=== PATIENT | female | born 1975 | race Caucasian/White ===

== ENCOUNTER → 2018-07-03 | Outpatient (CLI) | payer OTHER ==
[2016-06-13 13:13] VITALS: BP 117/73
[~2018-07-03] MED LIST: ACYC200C4 PO; ALPR1TAB2 PO; FEXO60TA25 PO; LEVO1.5T8 PO; VENL37.5 PO
--- NOTE | 2018-07-11 10:04 | KCIC ---
EXAM: Bilateral digital screening mammogram with tomosynthesis. HISTORY: 42-year-old female presents for screening mammography. TECHNIQUE: Full-field digital craniocaudal and mediolateral oblique 2D and 3D tomosynthesis images of both breasts are obtained for evaluation. Computer aided detection with OgorodD software version 9.3 was applied. COMPARISON: 06/25/2015 BREAST PARENCHYMAL DENSITY: Level B - Scattered fibroglandular densities. FINDINGS: There is no new suspicious mass, microcalcification or region of architectural distortion. IMPRESSION: BI-RADS Category 2: Benign finding(s). RECOMMENDATION: Annual mammography is recommended. If your mammogram demonstrates that you have dense breast tissue, which could hide abnormalities, and if you have other risk factors for breast cancer that have been identified, you might benefit from supplemental screening tests that may be suggested by your ordering physician. Dense breast tissue, in and of itself, is a relatively common condition. This information is not provided to cause undue concern, but rather to raise your awareness and to promote discussion with your physician regarding the presence of other risk factors, in addition to dense breast tissue. A report of your mammography results will be sent to you and your physician. You should contact your physician if you have any questions or concerns regarding this report. Mammography is a sensitive method for finding small breast cancers, but it does not detect them all and is not a substitute for careful clinical examination. A negative mammogram does not negate a clinically suspicious finding and should not result in delay in biopsying a clinically suspicious abnormality. PQRS compliance statement - Patient information was entered into a reminder system with a target due date for the next mammogram. "Our facility is accredited by the [employer] Mammography Program." Electronically signed by: Lauren Cordero MD (07/11/2018 10:00 AM) [id number]
== END | disposition home or self-care (01) ==
LOC: KCIC MAMMO 15:21
PROVIDERS: ATTEND Family Medicine
DX: Z12.31 Encounter for screening mammogram for malignant neoplasm of breast (principal)
CPT/HCPCS: 77063; 77067

== ENCOUNTER → 2019-11-13 | Outpatient (CLI) | payer OTHER, BC ==
[2016-06-13 13:13] VITALS: BP 117/73
--- NOTE | 2019-11-13 09:19 | KCIC ---
Examination: THYROID ULTRASOUND History: Right neck mass Comparison/Correlation: None Findings: Thyroid ultrasound exam was performed. Right thyroid lobe measures 5.7 cm x 3.1 cm x 2.4 cm left thyroid lobe measures 5.6 x 1.6 cm x 1.2 cm. Thyroid isthmus measures up to 0.3 cm tall. In the right thyroid lobe interpolar region, there is a 3.7 cm x 2.5 cm x 2 cm Anteroposterior mass. Flow is present within. This mass is heterogeneously hyperechoic. Small cystic component superior aspect appears to be present. A few small echogenic foci within this mass which may represent calcific lesions are present. The right thyroid inferior pole, there is a 1.7 x 1.3 cm cm anteroposterior by 1.4 cm mostly hyperechoic nodule. No flow is evident within it. At the left thyroid lobe inferior pole, there is a 1 cm longitudinal by 0.7 cm anteroposterior by 0.8 cm transverse intermediate echogenicity nodule. This is along the inferior margin of the left thyroid lobe may represent a parathyroid lesion. Impression: TI-RADS category 3-mildly suspicious. Ultrasound guided fine needle aspiration of the dominant right thyroid lobe heterogeneous well-circumscribed thyroid mass is recommended. Small right thyroid lobe inferior pole mass is also present. This also may be assessed with fine-needle aspiration. Hypoechoic structure along the deep margin of the of the left thyroid inferior pole may represent a parathyroid lesion. No aggressive features. Correlate with clinical history. Continued follow-up recommended by ultrasound. Electronically signed by: Romie Martin MD (11/13/2019 9:16 AM) [id number]
== END | disposition home or self-care (01) ==
LOC: KCIC US 08:05
PROVIDERS: ATTEND Nurse Practitioner
DX: E04.2 Nontoxic multinodular goiter (principal)
CPT/HCPCS: 76536

== ENCOUNTER → 2019-11-30 | Outpatient (CLI) | payer OTHER, BC ==
[2016-06-13 13:13] VITALS: BP 117/73
--- NOTE | 2019-11-30 16:35 | RAD ---
EXAM: ULTRASOUND-GUIDED THYROID FINE-NEEDLE ASPIRATION. HISTORY: Thyroid nodule. Ultrasound-guided biopsy is requested. FINDINGS: The procedure along with its risks and benefits were explained to the patient. They agreed to proceed. A timeout procedure was performed. Sonographic images of the thyroid gland were obtained. The dominant 3.7 cm target nodule in the right thyroid lobe was adequately visualized for biopsy. The overlying skin was sterilely prepped and infiltrated with 1% lidocaine for local anesthesia. Under ultrasound guidance, 4 aspirates were obtained using 25-gauge needles. These were hand delivered to pathology who determined them adequate for diagnosis. A sterile dressing was placed. There were no immediate complications. IMPRESSION: 1. Successful ultrasound-guided fine-needle aspiration of the right thyroid nodule. Electronically signed by: Brennan Cabello MD (11/30/2019 4:32 PM) [id number]
--- NOTE | 2019-12-05 16:06 | PATHOLOGY ---
Note [facility] Accession Number: [id number] TESTS RESULT FLAG UNITS REF RANGE LAB Clinician Provided Cytology Information No. of containers..01 Other (Miscellaneous) Source: RT DOMINANT THYROID DIAGNOSIS: RT DOMINANT THYROID [place] CATEGORY II. BENIGN. CLUSTERS OF FOLLICULAR EPITHELIAL CELLS, HEMOSIDERIN-LADEN MACROPHAGES,AND SCANT COLLOID. FINDINGS ARE COMPATIBLE WITH AN ADENOMATOUS NODULE. THIS INTERPRETATION INCLUDES EVALUATION OF A CELL BLOCK. Signed out by: 02 Florencio Herr MD, Pathologist NPI- [id number] Performed by: Sirena Campbell, Lead Cashier ([facility]) Gross description: 01 30ML, CLEAR RED, 2F 2AD 2HE /LCS 11/30/2019 1815 Local FLAG LEGEND: L-Low Normal,H-High Normal,LL-Alert Low,HH-Alert High <-Panic Low,>-Panic High,A-Abnormal,AA-Critical Abnormal Performed at: [facility] [address] [place] [address] Alvin López MD, 02 [facility] [address] [place] [address] Florencio Herr MD, Specimen Comment: A courtesy copy of this report has been sent to [phone], [phone] Specimen Comment: [phone], Specimen Comment: Report sent to Specimen Comment: A duplicate report has been generated due to demographic updates. Performed at: [address], [place], [place] [id number] MD Alvin López MD Phone: [phone]
== END | disposition home or self-care (01) ==
LOC: US 10:17
PROVIDERS: ATTEND Surgery
DX: E04.1 Nontoxic single thyroid nodule (principal); D34 Benign neoplasm of thyroid gland
CPT/HCPCS: 10005; 60300; 76942

== ENCOUNTER → 2020-03-12 | Outpatient (CLI) | payer OTHER, BC ==
[2016-06-13 13:13] VITALS: BP 117/73
--- NOTE | 2020-03-12 13:25 | KCIC ---
EXAM: 1. CHEST ONE VIEW. 2. RIGHT AXILLARY ULTRASOUND. 3. ULTRASOUND NECK SOFT TISSUES. HISTORY: Lymphadenopathy. COMPARISON: 06/13/2016. FINDINGS: A frontal view of the chest is obtained. There are no confluent infiltrates. There is no pneumothorax or pleural effusion. The heart is not enlarged. Cholecystectomy clips are noted. There is a mild thoracic dextrocurvature. Sonography of the sites of palpable concern bilaterally within the neck was performed. This reveals normal-appearing bilateral cervical lymph nodes with thin cortices and prominent fatty kavitha. The largest on the right measures 1.2 x 0.7 cm. A posterior auricular node on the left measures 5 x 2 mm and also appears benign. There is no suspicious sonographic finding. Sonography of the sites of concern in the right axilla was performed. This reveals multiple normal-appearing lymph nodes with thin cortices and prominent fatty kavitha. There is no suspicious sonographic finding. IMPRESSION: 1. No confluent infiltrates. Normal mediastinal contour. 2. Normal cervical and right axillary lymph nodes. No abnormal appearing nodes are identified. Recommend ongoing clinical follow-up of palpable foci. Electronically signed by: Rhona Lam MD (03/12/2020 1:22 PM) [id number]
== END | disposition home or self-care (01) ==
LOC: KCIC US 12:19
PROVIDERS: ATTEND Nurse Practitioner
DX: R59.0 Localized enlarged lymph nodes (principal); R91.1 Solitary pulmonary nodule; Z90.49 Acquired absence of other specified parts of digestive tract
CPT/HCPCS: 71046; 76536; 76881